=== PATIENT | female | born 1970 | race Caucasian/White ===

== ENCOUNTER → 2016-07-18 | Outpatient (CLI) | payer OTHER | LOC: BRMIMAGING 14:53 | DX: Z12.31 Encounter for screening mammogram for malignant neoplasm of breast (principal) | CPT/HCPCS: G0202 ==

== ENCOUNTER → 2017-07-21 | Outpatient (CLI) | payer OTHER | LOC: BRMIMAGING 08:08 | PROVIDERS: ATTEND Physician Assistant Medical | DX: Z12.31 Encounter for screening mammogram for malignant neoplasm of breast (principal); R92.8 Other abnormal and inconclusive findings on diagnostic imaging of breast ==

== ENCOUNTER → 2017-08-07 | Outpatient (CLI) | payer OTHER | LOC: BRMIMAGING 08:53 | PROVIDERS: ATTEND Physician Assistant Medical | DX: Z03.89 Encounter for observation for other suspected diseases and conditions ruled out (principal) ==